=== PATIENT | male | born 1970 | race Caucasian/White ===

== ENCOUNTER 2019-07-02 17:25 | Emergency (ER) | payer MEDICAID ==
[~2019-07-02] VITALS: Ht 172.7 cm; Wt 78.0 kg
[2019-07-02] MEDS ORDERED: FOLIC ACID 1 MG, THIAMINE HCL 100 MG, MVI, ADULT NO.1 10 ML in DEXTROSE 5% WATER 1,000 ML IV ONE ×4 (18:45)
[2019-07-02] MEDS ORDERED: ONDANSETRON HCL 4MG/2ML INJ IV ONE (18:45)
[2019-07-02 19:05] LABS: CHLORIDE 110 mEq/L (98-107)
[2019-07-02 19:10] LABS: BASOPHILS % 0.4 % (0.0-2.0); EOSINOPHILS % 0.3 % (0.0-5.0); ETHANOL BLOOD 245 mg/dL; HEMATOCRIT. 41.9 % (42.0-52.0); HEMOGLOBIN. 13.7 g/dL (14.0-18.0); LYMPHOCYTES % 11.2 % (20.0-50.0); MEAN CORPUSCULAR HEMOGLOBIN 33.1 pg (28.0-32.0); MEAN CORPUSCULAR VOLUME 101.1 fL (80.0-94.0); MEAN PLATELET VOLUME 9.2 fl (7.4-10.4); MONOCYTES % 3.8 % (2.0-8.0); NEUTROPHILS % 84.3 % (40.0-76.0); PLATELET 193 x1000/uL (130-400); RED BLOOD CELL COUNT 4.14 mill/uL (4.7-6.1); RED CELL DISTRIBUTION WIDTH 13.7 % (11.6-14.6)
[2019-07-03 01:07] LABS: CLARITY URINE CLEAR (CLEAR); COLOR URINE YELLOW (YELLOW); KETONES URINE TRACE (NEGATIVE); LEUKOCYTE ESTERASE URINE NEGATIVE (NEGATIVE); NITRITE URINE NEGATIVE (NEGATIVE); OCCULT BLOOD URINE NEGATIVE (NEGATIVE); PROTEIN URINE 1+ (NEGATIVE); SPECIFIC GRAVITY URINE 1.024 (1.005-1.030); UROBILINOGEN URINE 0.2 E.U./dL (0.2-1.0)
[2019-07-03 01:23] LABS: *AMPHETAMINES SCREEN URINE PRESUMTIVE POSITIVE (NEGATIVE)
[2019-07-03 01:24] LABS: *BARBITURATES SCREEN URINE NEGATIVE (NEGATIVE); *BENZODIAZEPINES SCREEN URINE NEGATIVE (NEGATIVE); *COCAINE SCREEN URINE NEGATIVE (NEGATIVE); METHADONE URINE SCREEN NEGATIVE (NEGATIVE); OPIATES URINE SCREEN NEGATIVE (NEGATIVE); PHENCYCLIDINE URINE SCREEN NEGATIVE (NEGATIVE)
[2019-07-03 01:25] LABS: CANNABINOID URINE SCREEN PRESUMTIVE POSITIVE (NEGATIVE)
[2019-07-03] MEDS ORDERED: LORAZEPAM 1MG TABLET PO ONE (05:30)
[2019-07-03] MEDS ORDERED: ONDANSETRON 4MG ODT PO ONE (05:30)
[2019-07-03 07:04] VITALS: BP 115/80
== END 2019-07-03 07:07 | disposition home or self-care (01) ==
LOC: ER 17:25
DX: T51.0X1A Toxic effect of ethanol, accidental (unintentional), initial encounter (principal); G92 Toxic encephalopathy; F10.129 Alcohol abuse with intoxication, unspecified; Y90.8 Blood alcohol level of 240 mg/100 ml or more; T43.621A Poisoning by amphetamines, accidental (unintentional), initial encounter; R00.1 Bradycardia, unspecified; F15.10 Other stimulant abuse, uncomplicated; Y92.89 Other specified places as the place of occurrence of the external cause
CPT/HCPCS: 36415; 70450; 80053; 80305; 80307; 80320; 80329; 81003; 84484; 85025; 93005; 96365; 96366; 96375; 99284; J2405; J3411; J3490; J7070; Q0162; G0480

== ENCOUNTER 2021-07-02 20:05 | Inpatient (IN) | payer MEDICAID ==
[~2021-07-02] VITALS: Ht 172.7 cm; Wt 75.7 kg
[2021-07-03 00:07] LABS: BASOPHILS % 1.9 % (0.0-2.0); EOSINOPHILS % 0.6 % (0.0-5.0); HEMATOCRIT. 25.5 % (42.0-52.0); HEMOGLOBIN. 8.4 g/dL (14.0-18.0); LYMPHOCYTES % 28.3 % (20.0-50.0); MEAN CORPUSCULAR HEMOGLOBIN 29.6 pg (28.0-32.0); MEAN CORPUSCULAR VOLUME 89.9 fL (80.0-94.0); MEAN PLATELET VOLUME 8.9 fl (7.4-10.4); MONOCYTES % 6.6 % (2.0-8.0); NEUTROPHILS % 62.6 % (40.0-76.0); PLATELET 235 x1000/uL (130-400); RED BLOOD CELL COUNT 2.84 mill/uL (4.7-6.1); RED CELL DISTRIBUTION WIDTH 16.9 % (11.6-14.6)
[2021-07-03 00:12] LABS: CHLORIDE 109 mEq/L (98-107)
[2021-07-03] MEDS ORDERED: ACETAMINOPHEN 325MG TABLET PO ONE (00:15)
[2021-07-03 00:16] LABS: PROTHROMBIN TIME 10.8 sec (9.6-11.0)
[2021-07-03] MEDS ORDERED: PANTOPRAZOLE SODIUM 40 MG/VIAL IV STA (00:25)
[2021-07-03] MEDS ORDERED: SODIUM CHLORIDE 0.9% 1,000 ML IV ONE (00:30)
[2021-07-03] MEDS: MORPHINE SULFATE 2 MG/ML CPJ (NOT FOR IM USE) IV PRN ×3 (06:31→22:20)
[2021-07-03] MEDS ORDERED: LORAZEPAM 2MG/ML CPJ IV PRN (08:15)
[2021-07-03] MEDS ORDERED: ONDANSETRON HCL 4MG/2ML INJ IV PRN (08:15)
[2021-07-03] MEDS ORDERED: NALOXONE HCL 0.4MG/ML VIAL IV PRN (08:45)
[2021-07-03] MEDS ORDERED: FOLIC ACID 1 MG, THIAMINE HCL 100 MG, MVI, ADULT NO.1 10 ML in DEXTROSE 5% WATER 1,000 ML IV SCH (09:00)
[2021-07-03] MEDS: PANTOPRAZOLE SODIUM 40 MG/VIAL IV SCH ×2 (09:02→21:00)
[2021-07-03] MEDS: DEXT 5%/0.45% NACL 1000ML 1,000 ML IV SCH ×2 (09:02→16:36)
[2021-07-03 14:00] VITALS: BP 128/87
[2021-07-03 14:19] VITALS: BP 128/87
[2021-07-03 16:00] VITALS: BP 146/55
[2021-07-03] MEDS: CHLORDIAZEPOXIDE 25MG CAPSULE PO SCH ×2 (16:00→21:43)
[2021-07-03 19:21] LABS: HEMATOCRIT 23.8 % (42.0-52.0); HEMOGLOBIN 7.8 g/dL (14.0-18.0)
[2021-07-03 19:32] LABS: TOTAL IRON BINDING CAPACITY 285 ug/dL (250-450)
[2021-07-03 19:45] LABS: FOLIC ACID (FOLATE) SERUM >20 ng/mL ng/mL (>5.38)
[2021-07-03 19:57] LABS: VITAMIN B12 SERUM 284 pg/mL (211-911)
[2021-07-03 20:00] VITALS: BP 119/60
[2021-07-03 20:03] LABS: FERRITIN 23 ng/mL (22-322)
[2021-07-03 22:00] VITALS: BP 126/63
[2021-07-04] VITALS (7 sets, daily range): BP systolic 95–119; BP diastolic 42–89
[2021-07-04 01:19] LABS: HEMATOCRIT 22.9 % (42.0-52.0); HEMOGLOBIN 7.6 g/dL (14.0-18.0)
[2021-07-04] MEDS: CHLORDIAZEPOXIDE 25MG CAPSULE PO SCH ×2 (05:00→21:39)
[2021-07-04] MEDS: DEXT 5%/0.45% NACL 1000ML 1,000 ML IV SCH ×2 (05:06→16:01)
[2021-07-04] MEDS: MORPHINE SULFATE 2 MG/ML CPJ (NOT FOR IM USE) IV PRN ×2 (05:14→10:01)
[2021-07-04 06:34] LABS: PROTHROMBIN TIME 10.8 sec (9.6-11.0)
[2021-07-04 06:41] LABS: CHLORIDE 106 mEq/L (98-107)
[2021-07-04 06:43] LABS: BASOPHILS % 1.6 % (0.0-2.0); HEMATOCRIT. 25.7 % (42.0-52.0); HEMOGLOBIN. 8.4 g/dL (14.0-18.0); LYMPHOCYTES % 27.6 % (20.0-50.0); MEAN CORPUSCULAR HEMOGLOBIN 29.6 pg (28.0-32.0); MEAN CORPUSCULAR VOLUME 90.1 fL (80.0-94.0); MEAN PLATELET VOLUME 9.4 fl (7.4-10.4); MONOCYTES % 9.7 % (2.0-8.0); NEUTROPHILS % 59.1 % (40.0-76.0); PLATELET 247 x1000/uL (130-400); RED BLOOD CELL COUNT 2.85 mill/uL (4.7-6.1); RED CELL DISTRIBUTION WIDTH 16.6 % (11.6-14.6)
[2021-07-04] MEDS ORDERED: METOCLOPRAMIDE HCL 10MG/2ML VIAL IV SCH ×2 (09:37→14:15)
[2021-07-04] MEDS: PANTOPRAZOLE SODIUM 40 MG/VIAL IV SCH ×2 (09:50→21:39)
[2021-07-04] MEDS: MULTIVITAMINS,THER W-MINERALS TABLET PO SCH (09:51)
[2021-07-04] MEDS ORDERED: IOHEXOL-300 100 ML BOTTLE ONE (11:09)
[2021-07-04] MEDS ORDERED: SODIUM CHLORIDE 0.9% 1,000 ML IV SCH (16:15)
[2021-07-04] MEDS ORDERED: PHENYLEPHRINE HCL 10 MG/ML 1ML (IV VIAL) IV ONE (16:20)
[2021-07-04] MEDS ORDERED: MIDAZOLAM HCL 2 MG/2 ML VIAL ONE (16:22)
[2021-07-04] MEDS ORDERED: PROPOFOL 200MG/20ML VIAL IV ONE (16:22)
[2021-07-04 16:24] LABS: HEMATOCRIT 25.1 % (42.0-52.0); HEMOGLOBIN 8.3 g/dL (14.0-18.0)
[2021-07-04] MEDS ORDERED: FERR325T23 MT (18:21)
[2021-07-04] MEDS ORDERED: THIA100T88 MT (18:21)
[2021-07-04] MEDS ORDERED: SUCR1TAB MT (18:21)
[2021-07-04] MEDS ORDERED: OMEP40CA20 MT (18:21)
[2021-07-04] MEDS ORDERED: MORPHINE SULFATE 2 MG/ML CPJ (NOT FOR IM USE) IV PRN (20:45)
[2021-07-04 22:55] LABS: HEMOGLOBIN 7.9 g/dL (14.0-18.0)
[2021-07-05] VITALS: BP 114/56
[2021-07-05 04:00] VITALS: BP 90/53
[2021-07-05] MEDS: CHLORDIAZEPOXIDE 25MG CAPSULE PO SCH (05:51)
[2021-07-05 06:35] LABS: HEMATOCRIT 22.5 % (42.0-52.0); HEMOGLOBIN 7.3 g/dL (14.0-18.0)
[2021-07-05] MEDS: MULTIVITAMINS,THER W-MINERALS TABLET PO SCH (08:01)
[2021-07-05] MEDS: PANTOPRAZOLE SODIUM 40 MG/VIAL IV SCH (08:01)
[2021-07-05 08:02] VITALS: BP 121/71
[2021-07-05 11:27] VITALS: BP 115/72
== END 2021-07-05 18:11 | disposition home or self-care (01) | DRG 242 ==
LOC: ER 20:05 → MICUSO 07-03 01:18 → 5EST 07-03 14:16
PROVIDERS: ADMIT Internal Medicine; ATTEND Internal Medicine
PROC: 0DB78ZX Excision of Stomach, Pylorus, Via Natural or Artificial Opening Endoscopic, Diagnostic (ICD-10-PCS; principal; 2021-07-04)
DX: K22.11 Ulcer of esophagus with bleeding (principal); K29.71 Gastritis, unspecified, with bleeding; E87.8 Other disorders of electrolyte and fluid balance, not elsewhere classified; K29.81 Duodenitis with bleeding; D64.9 Anemia, unspecified; K40.90 Unilateral inguinal hernia, without obstruction or gangrene, not specified as recurrent; Z20.822 Contact with and (suspected) exposure to COVID-19; F10.10 Alcohol abuse, uncomplicated; K44.9 Diaphragmatic hernia without obstruction or gangrene; Y90.9 Presence of alcohol in blood, level not specified; R26.2 Difficulty in walking, not elsewhere classified; F41.9 Anxiety disorder, unspecified; K76.9 Liver disease, unspecified; Z59.00 Homelessness unspecified; Z71.41 Alcohol abuse counseling and surveillance of alcoholic
CPT/HCPCS: 36415; 71045; 74177; 76700; 80053; 82607; 82728; 82746; 82962; 83540; 83550; 85014; 85018; 85025; 85044; 86850; 86900; 86920; 87426; 88305; 88312; 88313; 93005; 99291; C9113; J2060; J2250; J2270; J2370; J2704; J2765; J3411; J3490; J7030; J7070; Q9967

== ENCOUNTER 2021-11-24 09:35 | Emergency (ER) | payer MEDICAID ==
[~2021-11-24] VITALS: Ht 170.2 cm; Wt 75.0 kg
[~2021-11-24 09:35] MED LIST: FERR325T23 MT; OMEP40CA20 MT; SUCR1TAB MT; THIA100T88 MT
[2021-11-24] MEDS ORDERED: KETOROLAC 30MG/ML VIAL IV STA (10:28)
[2021-11-24 10:44] LABS: BASOPHILS % 1.2 % (0.0-2.0); EOSINOPHILS % 0.8 % (0.0-5.0); HEMATOCRIT. 34.8 % (42.0-52.0); HEMOGLOBIN. 10.7 g/dL (14.0-18.0); LYMPHOCYTES % 23.1 % (20.0-50.0); MEAN CORPUSCULAR HEMOGLOBIN 21.9 pg (28.0-32.0); MONOCYTES % 5.8 % (2.0-8.0); NEUTROPHILS % 69.1 % (40.0-76.0); PLATELET 293 x1000/uL (130-400); RED CELL DISTRIBUTION WIDTH 29.4 % (11.6-14.6)
[2021-11-24 10:50] LABS: CHLORIDE 110 mEq/L (98-107)
[2021-11-24 11:11] LABS: CLARITY URINE CLEAR (CLEAR); COLOR URINE YELLOW (YELLOW); KETONES URINE 1+ (NEGATIVE); LEUKOCYTE ESTERASE URINE NEGATIVE (NEGATIVE); NITRITE URINE NEGATIVE (NEGATIVE); OCCULT BLOOD URINE NEGATIVE (NEGATIVE); PROTEIN URINE TRACE (NEGATIVE); SPECIFIC GRAVITY URINE 1.031 (1.005-1.030)
[2021-11-24] MEDS ORDERED: IOHEXOL-300 100 ML BOTTLE ONE (11:15)
[2021-11-24 11:52] LABS: PLATELET ESTIMATE NORMAL
[2021-11-24 16:32] VITALS: BP 115/72
== END 2021-11-24 16:34 | disposition home or self-care (01) ==
LOC: ER 09:35
DX: K40.90 Unilateral inguinal hernia, without obstruction or gangrene, not specified as recurrent (principal); F10.21 Alcohol dependence, in remission
CPT/HCPCS: 36415; 74177; 80053; 81003; 83690; 85025; 93005; 96374; 99285; J1885; Q9967

== ENCOUNTER → 2022-06-06 | Day surgery (SDC) | payer MEDICAID ==
[~2022-06-06] VITALS: Ht 208.3 cm; Wt 86.2 kg
[~2022-06-06] MED LIST changes: +BUPIVACAINE HCL IL SCH; +BUPIVACAINE HCL/PF 0.5% (5MG/ML) 10ML ONE; +CEFAZOLIN SODIUM 1000MG/VIAL ONE; +DEXAMETHASONE 4MG/ML 1ML VIAL ONE; +FENTANYL CITRATE/PF 50MCG/ML 2ML VIAL ONE; +GLYCOPYRROLATE 0.2 MG/ML 2ML VIAL ONE; +HYDROMORPHONE HCL/PF 2MG/ML CPJ IV PRN; +LACTATED RINGERS 1,000 ML IV SCH; +MELA5TAB21 PO; +METOCLOPRAMIDE HCL 10MG/2ML VIAL ONE; +MIDAZOLAM HCL 2 MG/2 ML VIAL ONE; +NEOSTIGMINE METHYLSULFATE 1MG/ML 10 ML VIAL ONE; +ONDANSETRON HCL 4MG/2ML INJ IV NR; +ONDANSETRON HCL 4MG/2ML INJ ONE; +PROPOFOL 200MG/20ML VIAL IV ONE; +ROCURONIUM BROMIDE 10MG/ML VIAL 5ML IV ONE; +SKIN ADHESIVE 0.7 GM EA TOP ONE
[2022-06-06 10:15] VITALS: BP 126/81
== END | disposition home or self-care (01) ==
LOC: OR 05:10
PROVIDERS: ATTEND Surgery
DX: K40.90 Unilateral inguinal hernia, without obstruction or gangrene, not specified as recurrent (principal); E66.9 Obesity, unspecified; E78.00 Pure hypercholesterolemia, unspecified; Z79.899 Other long term (current) drug therapy; Z98.890 Other specified postprocedural states; Z72.89 Other problems related to lifestyle; Z68.1 Body mass index [BMI] 19.9 or less, adult; Z20.822 Contact with and (suspected) exposure to COVID-19
CPT/HCPCS: 49505; 87426; C1781; C9803; J0690; J1100; J1170; J2250; J2405; J2704; J2710; J2765; J3010; J3490

== ENCOUNTER 2022-07-19 11:13 | Emergency (ER) | payer MEDICAID ==
[~2022-07-19] VITALS: Ht 177.8 cm; Wt 87.0 kg
[~2022-07-19 11:13] MED LIST changes: -BUPIVACAINE HCL IL SCH; -BUPIVACAINE HCL/PF 0.5% (5MG/ML) 10ML ONE; -CEFAZOLIN SODIUM 1000MG/VIAL ONE; -DEXAMETHASONE 4MG/ML 1ML VIAL ONE; -FENTANYL CITRATE/PF 50MCG/ML 2ML VIAL ONE; -FERR325T23 MT; +FERR325T6 MT; -GLYCOPYRROLATE 0.2 MG/ML 2ML VIAL ONE; -HYDROMORPHONE HCL/PF 2MG/ML CPJ IV PRN; -LACTATED RINGERS 1,000 ML IV SCH; -METOCLOPRAMIDE HCL 10MG/2ML VIAL ONE; -MIDAZOLAM HCL 2 MG/2 ML VIAL ONE; -NEOSTIGMINE METHYLSULFATE 1MG/ML 10 ML VIAL ONE; -OMEP40CA20 MT; -ONDANSETRON HCL 4MG/2ML INJ IV NR; -ONDANSETRON HCL 4MG/2ML INJ ONE; +PANT40TA51 MT; -PROPOFOL 200MG/20ML VIAL IV ONE; -ROCURONIUM BROMIDE 10MG/ML VIAL 5ML IV ONE; -SKIN ADHESIVE 0.7 GM EA TOP ONE; -SUCR1TAB MT; +SUCR1TAB30 MT; -THIA100T88 MT
[2022-07-19] MEDS ORDERED: VISCOUS LIDOCAINE 2% 15 ML UDC PO STA (11:26)
[2022-07-19] MEDS ORDERED: MAGNESIUM/ALUMINUM HYDROXIDE/SIMETHICONE 30ML UDC PO STA (11:26)
[2022-07-19] MEDS ORDERED: DICYCLOMINE 10 MG/5 ML ORAL SYR PO STA (11:26)
[2022-07-19] MEDS ORDERED: MORPHINE SULFATE 4 MG/ML CPJ (NOT FOR IM USE) IV ONE (12:00)
[2022-07-19 12:09] LABS: EOSINOPHILS % 1.3 % (0.0-5.0); LYMPHOCYTES % 19.3 % (20.0-50.0); MEAN CORPUSCULAR HEMOGLOBIN 25.8 pg (28.0-32.0); MEAN PLATELET VOLUME 7.9 fl (7.4-10.4); MONOCYTES % 7.3 % (2.0-8.0); NEUTROPHILS % 71.1 % (40.0-76.0); PLATELET 414 x1000/uL (130-400); RED BLOOD CELL COUNT 4.27 mill/uL (4.7-6.1); RED CELL DISTRIBUTION WIDTH 20.5 % (11.6-14.6)
[2022-07-19 12:18] LABS: CHLORIDE 107 mEq/L (98-107)
[2022-07-19 12:31] LABS: PROTHROMBIN TIME 10.9 sec (9.6-11.0)
[2022-07-19] MEDS ORDERED: PANT40TA51 PO (13:26)
[2022-07-19] MEDS ORDERED: TOPUD PO (13:26)
[2022-07-19 14:31] VITALS: BP 137/92
== END 2022-07-19 14:31 | disposition home or self-care (01) ==
LOC: ER 11:13
DX: R10.13 Epigastric pain (principal); R07.89 Other chest pain; R03.0 Elevated blood-pressure reading, without diagnosis of hypertension; F10.20 Alcohol dependence, uncomplicated; Y90.9 Presence of alcohol in blood, level not specified
CPT/HCPCS: 36415; 80053; 84484; 85025; 93005; 99284

== ENCOUNTER 2022-08-05 09:27 | Inpatient (IN) | payer MEDICAID ==
[~2022-08-05] VITALS: Ht 172.7 cm; Wt 86.6 kg
[~2022-08-05 09:27] MED LIST changes: +PANT40TA51 PO; +TOPUD PO
[2022-08-05] MEDS ORDERED: SODIUM CHLORIDE 0.9% 1,000 ML IV ONE (11:45)
[2022-08-05] MEDS ORDERED: MORPHINE SULFATE 2 MG/ML CPJ (NOT FOR IM USE) IV ONE (12:15)
[2022-08-05] MEDS ORDERED: PANTOPRAZOLE 80 MG in SODIUM CHLORIDE 0.9% 100 ML IV SCH ×2 (12:15→13:00)
[2022-08-05] MEDS ORDERED: ONDANSETRON HCL 4MG/2ML INJ IV ONE (12:15)
[2022-08-05 12:16] LABS: PROTHROMBIN TIME 11.2 sec (9.6-11.0)
[2022-08-05 12:18] LABS: BASOPHILS % 0.7 % (0.0-2.0); CHLORIDE 103 mEq/L (98-107); EOSINOPHILS % 0.4 % (0.0-5.0); HEMATOCRIT. 35.1 % (42.0-52.0); LYMPHOCYTES % 11.8 % (20.0-50.0); MEAN CORPUSCULAR HEMOGLOBIN 24.8 pg (28.0-32.0); MEAN CORPUSCULAR VOLUME 79.3 fL (80.0-94.0); MEAN PLATELET VOLUME 7.8 fl (7.4-10.4); MONOCYTES % 7.7 % (2.0-8.0); NEUTROPHILS % 79.4 % (40.0-76.0); PLATELET 531 x1000/uL (130-400); RED BLOOD CELL COUNT 4.43 mill/uL (4.7-6.1); RED CELL DISTRIBUTION WIDTH 18.6 % (11.6-14.6)
[2022-08-05] MEDS ORDERED: PANTOPRAZOLE SODIUM 40 MG/VIAL IV ONE (15:15)
[2022-08-05 15:33] LABS: CLARITY URINE CLEAR (CLEAR); COLOR URINE YELLOW (YELLOW); KETONES URINE NEGATIVE (NEGATIVE); LEUKOCYTE ESTERASE URINE NEGATIVE (NEGATIVE); NITRITE URINE NEGATIVE (NEGATIVE); OCCULT BLOOD URINE NEGATIVE (NEGATIVE); PH URINE 5.5 (4.5-8.0); PROTEIN URINE NEGATIVE (NEGATIVE); SPECIFIC GRAVITY URINE 1.015 (1.005-1.030); UROBILINOGEN URINE 0.2 E.U./dL (0.2-1.0)
[2022-08-05 22:00] VITALS: BP 123/63
[2022-08-06] VITALS (7 sets, daily range): BP systolic 103–120; BP diastolic 56–83
[2022-08-06 03:13] LABS: HEMATOCRIT 29.3 % (42.0-52.0); HEMOGLOBIN 9.3 g/dL (14.0-18.0)
[2022-08-06] MEDS: PANTOPRAZOLE SODIUM 40 MG/VIAL IV SCH (08:45)
[2022-08-06] MEDS ORDERED: NALOXONE HCL 0.4MG/ML VIAL IV PRN (09:15)
[2022-08-06] MEDS: SUCRALFATE 1 G/10 ML UDC PO SCH ×3 (11:49→21:22)
[2022-08-06] MEDS: MORPHINE SULFATE 2 MG/ML CPJ (NOT FOR IM USE) IV PRN (11:50)
[2022-08-06] MEDS ORDERED: IPRATROPIUM/ALBUTEROL 0.5-3(2.5)MG/3ML NEB HHN PRN (12:30)
[2022-08-06] MEDS ORDERED: ONDANSETRON HCL 4MG/2ML INJ IV PRN (12:30)
[2022-08-06] MEDS ORDERED: ACETAMINOPHEN 325MG TABLET PO PRN ×2 (12:30)
[2022-08-06] MEDS ORDERED: CLONIDINE 0.1MG TABLET PO PRN (12:30)
[2022-08-06] MEDS ORDERED: LORAZEPAM 0.5MG TABLET PO PRN (12:30)
[2022-08-06] MEDS ORDERED: DOCUSATE SODIUM 100MG CAPSULE PO PRN (12:30)
[2022-08-06] MEDS: THIAMINE HCL 100MG TABLET PO SCH (15:59)
[2022-08-06] MEDS: FOLIC ACID 1MG TABLET PO SCH (15:59)
[2022-08-06] MEDS ORDERED: SUCRALFATE 1 G/10 ML UDC PO SCH (17:40)
[2022-08-06 18:37] LABS: TOTAL IRON BINDING CAPACITY 274 ug/dL (250-450)
[2022-08-06 19:04] LABS: VITAMIN B12 SERUM 407 pg/mL (211-911)
[2022-08-06 19:22] LABS: FERRITIN < 5 ng/mL (22-322)
[2022-08-06] MEDS ORDERED: MELATONIN 3MG TABLET PO PRN (21:00)
[2022-08-06] MEDS: CHLORDIAZEPOXIDE 25MG CAPSULE PO SCH (21:22)
[2022-08-07] VITALS: BP 117/74
[2022-08-07] MEDS: MORPHINE SULFATE 2 MG/ML CPJ (NOT FOR IM USE) IV PRN ×2 (03:48→12:11)
[2022-08-07 04:00] VITALS: BP 109/82
[2022-08-07] MEDS: CHLORDIAZEPOXIDE 25MG CAPSULE PO SCH ×3 (05:52→20:54)
[2022-08-07] MEDS: SUCRALFATE 1 G/10 ML UDC PO SCH ×4 (05:52→20:55)
[2022-08-07 07:07] LABS: BASOPHILS % 1.8 % (0.0-2.0); EOSINOPHILS % 2.4 % (0.0-5.0); HEMOGLOBIN. 9.5 g/dL (14.0-18.0); LYMPHOCYTES % 29.3 % (20.0-50.0); MEAN CORPUSCULAR HEMOGLOBIN 25.3 pg (28.0-32.0); MEAN CORPUSCULAR VOLUME 79.6 fL (80.0-94.0); MEAN PLATELET VOLUME 7.6 fl (7.4-10.4); NEUTROPHILS % 54.5 % (40.0-76.0); PLATELET 456 x1000/uL (130-400); RED BLOOD CELL COUNT 3.77 mill/uL (4.7-6.1); RED CELL DISTRIBUTION WIDTH 18.2 % (11.6-14.6)
[2022-08-07 08:00] VITALS: BP 110/80
[2022-08-07 08:18] LABS: CHLORIDE 111 mEq/L (98-107)
[2022-08-07] MEDS: FOLIC ACID 1MG TABLET PO SCH (08:35)
[2022-08-07] MEDS: PANTOPRAZOLE SODIUM 40 MG/VIAL IV SCH ×2 (08:35→20:55)
[2022-08-07] MEDS: THIAMINE HCL 100MG TABLET PO SCH (08:35)
[2022-08-07 12:00] VITALS: BP 117/61
[2022-08-07 16:00] VITALS: BP 119/79
[2022-08-07] MEDS: METOCLOPRAMIDE HCL 10MG/2ML VIAL IV SCH ×2 (17:44→23:53)
[2022-08-07] MEDS: IRON SUCROSE COMPLEX 100 MG/5 ML ML IV SCH (17:44)
[2022-08-07 20:00] VITALS: BP 121/81
[2022-08-08] VITALS: BP 123/71
[2022-08-08] MEDS: MORPHINE SULFATE 2 MG/ML CPJ (NOT FOR IM USE) IV PRN (02:24)
[2022-08-08 03:43] LABS: HEMATOCRIT. 32.3 % (42.0-52.0); HEMOGLOBIN. 10.2 g/dL (14.0-18.0); MEAN CORPUSCULAR HEMOGLOBIN 25.3 pg (28.0-32.0); MEAN CORPUSCULAR VOLUME 80.4 fL (80.0-94.0); MEAN PLATELET VOLUME 7.2 fl (7.4-10.4); PLATELET 453 x1000/uL (130-400); RED BLOOD CELL COUNT 4.02 mill/uL (4.7-6.1); RED CELL DISTRIBUTION WIDTH 18.3 % (11.6-14.6)
[2022-08-08 03:54] LABS: PROTHROMBIN TIME 10.5 sec (9.6-11.0)
[2022-08-08 04:00] VITALS: BP 119/71
[2022-08-08 04:28] LABS: CHLORIDE 107 mEq/L (98-107)
[2022-08-08] MEDS: CHLORDIAZEPOXIDE 25MG CAPSULE PO SCH ×3 (05:14→20:10)
[2022-08-08] MEDS: SUCRALFATE 1 G/10 ML UDC PO SCH ×4 (05:15→20:10)
[2022-08-08] MEDS: METOCLOPRAMIDE HCL 10MG/2ML VIAL IV SCH ×4 (05:15→23:26)
[2022-08-08 08:00] VITALS: BP 104/69
[2022-08-08] MEDS: PANTOPRAZOLE SODIUM 40 MG/VIAL IV SCH ×2 (08:44→20:09)
[2022-08-08] MEDS ORDERED: PROPOFOL 200MG/20ML VIAL IV ONE (10:10)
[2022-08-08] MEDS ORDERED: SIMETHICONE 40 MG/0.6 ML 15ML ONE (10:41)
[2022-08-08 12:05] VITALS: BP 109/68
[2022-08-08] MEDS: FOLIC ACID 1MG TABLET PO SCH (12:45)
[2022-08-08] MEDS: THIAMINE HCL 100MG TABLET PO SCH (12:45)
[2022-08-08 14:33] LABS: PLATELET ESTIMATE SLIGHTLY INCREASED
[2022-08-08] MEDS: IRON SUCROSE COMPLEX 100 MG/5 ML ML IV SCH (15:16)
[2022-08-08] MEDS: HYDROCODONE/ACETAMINOPHEN 5/325MG TABLET PO PRN (15:25)
[2022-08-08 16:00] VITALS: BP 110/72
[2022-08-08 20:00] VITALS: BP 107/81
[2022-08-09] VITALS: BP 119/74
[2022-08-09 04:00] VITALS: BP 111/80
[2022-08-09] MEDS: SUCRALFATE 1 G/10 ML UDC PO SCH ×4 (05:25→20:16)
[2022-08-09] MEDS: METOCLOPRAMIDE HCL 10MG/2ML VIAL IV SCH ×3 (05:25→18:21)
[2022-08-09] MEDS: CHLORDIAZEPOXIDE 25MG CAPSULE PO SCH ×3 (05:26→20:16)
[2022-08-09 08:00] VITALS: BP 111/67
[2022-08-09] MEDS: HYDROCODONE/ACETAMINOPHEN 5/325MG TABLET PO PRN (09:30)
[2022-08-09] MEDS: FOLIC ACID 1MG TABLET PO SCH (09:30)
[2022-08-09] MEDS: THIAMINE HCL 100MG TABLET PO SCH (09:30)
[2022-08-09] MEDS: PANTOPRAZOLE SODIUM 40 MG/VIAL IV SCH ×2 (09:50→20:16)
[2022-08-09 12:00] VITALS: BP 110/73
[2022-08-09 12:46] LABS: EOSINOPHILS % 2.4 % (0.0-5.0); HEMATOCRIT. 31.3 % (42.0-52.0); HEMOGLOBIN. 10.1 g/dL (14.0-18.0); LYMPHOCYTES % 26.7 % (20.0-50.0); MEAN CORPUSCULAR HEMOGLOBIN 25.5 pg (28.0-32.0); MEAN CORPUSCULAR VOLUME 78.6 fL (80.0-94.0); MEAN PLATELET VOLUME 7.8 fl (7.4-10.4); MONOCYTES % 10.4 % (2.0-8.0); NEUTROPHILS % 59.5 % (40.0-76.0); PLATELET 487 x1000/uL (130-400); RED BLOOD CELL COUNT 3.98 mill/uL (4.7-6.1); RED CELL DISTRIBUTION WIDTH 18.6 % (11.6-14.6)
[2022-08-09 13:46] LABS: CHLORIDE 109 mEq/L (98-107)
[2022-08-09] MEDS: IRON SUCROSE COMPLEX 100 MG/5 ML ML IV SCH (15:41)
[2022-08-09 16:00] VITALS: BP 110/70
[2022-08-09 20:00] VITALS: BP 107/76
[2022-08-10] VITALS: BP 103/79
[2022-08-10] MEDS: MORPHINE SULFATE 2 MG/ML CPJ (NOT FOR IM USE) IV PRN (02:56)
[2022-08-10] MEDS: SUCRALFATE 1 G/10 ML UDC PO SCH ×2 (03:25→12:22)
[2022-08-10 04:00] VITALS: BP 112/80
[2022-08-10] MEDS: METOCLOPRAMIDE HCL 10MG/2ML VIAL IV SCH ×3 (05:38→12:22)
[2022-08-10] MEDS: CHLORDIAZEPOXIDE 25MG CAPSULE PO SCH (05:38)
[2022-08-10 07:43] LABS: BASOPHILS % 1.2 % (0.0-2.0); EOSINOPHILS % 2.4 % (0.0-5.0); HEMATOCRIT. 31.2 % (42.0-52.0); HEMOGLOBIN. 9.9 g/dL (14.0-18.0); LYMPHOCYTES % 25.1 % (20.0-50.0); MEAN CORPUSCULAR VOLUME 79.2 fL (80.0-94.0); MEAN PLATELET VOLUME 7.6 fl (7.4-10.4); MONOCYTES % 7.7 % (2.0-8.0); NEUTROPHILS % 63.6 % (40.0-76.0); PLATELET 483 x1000/uL (130-400); RED BLOOD CELL COUNT 3.94 mill/uL (4.7-6.1); RED CELL DISTRIBUTION WIDTH 18.6 % (11.6-14.6)
[2022-08-10 08:00] VITALS: BP 114/76
[2022-08-10 08:02] LABS: CHLORIDE 111 mEq/L (98-107)
[2022-08-10] MEDS: THIAMINE HCL 100MG TABLET PO SCH (08:36)
[2022-08-10] MEDS: FOLIC ACID 1MG TABLET PO SCH (08:36)
[2022-08-10] MEDS: PANTOPRAZOLE SODIUM 40 MG/VIAL IV SCH (08:36)
[2022-08-10] MEDS ORDERED: THIA100T72 PO (11:31)
[2022-08-10] MEDS ORDERED: SUCR1TAB30 MT (11:31)
[2022-08-10] MEDS ORDERED: L25 MT (11:31)
[2022-08-10] MEDS ORDERED: FOLI-43 PO (11:31)
[2022-08-10] MEDS ORDERED: PANT40TA51 PO (11:31)
[2022-08-10 12:00] VITALS: BP 140/79
[2022-08-10 14:04] VITALS: BP 140/79
== END 2022-08-10 14:30 | disposition home or self-care (01) | DRG 242 ==
LOC: ER 09:51 → 7WST 17:02 → EDBEDREQTM 17:04 → EDBEDREQ 17:04
PROVIDERS: ADMIT Internal Medicine; ATTEND Internal Medicine
PROC: 0DB78ZX Excision of Stomach, Pylorus, Via Natural or Artificial Opening Endoscopic, Diagnostic (ICD-10-PCS; principal; 2022-08-08)
DX: K22.11 Ulcer of esophagus with bleeding (principal); D50.9 Iron deficiency anemia, unspecified; F10.20 Alcohol dependence, uncomplicated; D75.839 Thrombocytosis, unspecified; D72.829 Elevated white blood cell count, unspecified; K21.9 Gastro-esophageal reflux disease without esophagitis; K40.90 Unilateral inguinal hernia, without obstruction or gangrene, not specified as recurrent; K44.9 Diaphragmatic hernia without obstruction or gangrene; Z20.822 Contact with and (suspected) exposure to COVID-19; K29.70 Gastritis, unspecified, without bleeding; F12.90 Cannabis use, unspecified, uncomplicated; F41.9 Anxiety disorder, unspecified; F17.200 Nicotine dependence, unspecified, uncomplicated; F15.90 Other stimulant use, unspecified, uncomplicated; Z79.899 Other long term (current) drug therapy; Z87.19 Personal history of other diseases of the digestive system; Z59.00 Homelessness unspecified; Z91.199 Patient's noncompliance with other medical treatment and regimen due to unspecified reason
CPT/HCPCS: 36415; 71045; 74177; 80048; 80053; 81003; 82270; 82607; 82728; 82746; 83540; 83550; 84484; 85014; 85018; 85025; 85379; 87426; 93005; 99285; C1893; C9113; C9803; J2270; J2405; J2704; J2765; J7030; J7050

== ENCOUNTER 2023-05-24 14:51 | Emergency (ER) | payer MEDICAID, OTHER ==
[~2023-05-24] VITALS: Ht 175.3 cm; Wt 78.0 kg
[~2023-05-24 14:51] MED LIST changes: -FERR325T6 MT; -MELA5TAB21 PO; +OMEP40CA20 MT; -PANT40TA51 MT; -PANT40TA51 PO; -SUCR1TAB30 MT; -TOPUD PO
[2023-05-24 14:53] VITALS: BP 125/83; PULSE 76; RESP 16; TEMP 98.9; O2SAT 100
[2023-05-24] MEDS ORDERED: ACETAMINOPHEN 325MG TABLET PO ONE (15:30)
[2023-05-24] MEDS ORDERED: LIDOCAINE HCL 1% 20ML VIAL (Pyxis) INJ INFIL ONE (16:15)
[2023-05-24] MEDS ORDERED: CEPH500T MT (18:54)
[2023-05-24] MEDS ORDERED: SULF1TAB48 MT (18:55)
== END 2023-05-24 19:35 | disposition home or self-care (01) ==
LOC: ER 14:51
DX: S62.307A Unspecified fracture of fifth metacarpal bone, left hand, initial encounter for closed fracture (principal); F10.229 Alcohol dependence with intoxication, unspecified; X58.XXXA Exposure to other specified factors, initial encounter; Y93.89 Activity, other specified; Y92.89 Other specified places as the place of occurrence of the external cause; Y99.8 Other external cause status; Y90.0 Blood alcohol level of less than 20 mg/100 ml
CPT/HCPCS: 73030; 73120; 73130; 26605; 99284; J3490; Z7610 ×2